=== PATIENT | female | born 1955 | race Caucasian/White ===

== ENCOUNTER 2019-10-05 15:33 | Emergency (ER) | payer OTHER ==
[~2019-10-05] VITALS: Ht 157.5 cm; Wt 97.5 kg
[~2019-10-05 15:33] MED LIST: EFFEXOR XR75 MG PO; GLIPIZIDE ER10 MG PO; GRALISE600 MG PO; HYDROCHLOROTHIA25 MG PO; JANUVIA PO; LOSARTAN PO; METFORMIN PO; SIMVASTATIN PO; TRAMADOL PO
[2019-10-05] MEDS ORDERED: SODIUM CHLORIDE 0.9% 1000ML 1,000 ML IV STA (16:00)
--- NOTE | 2019-10-05 16:49 | Emergency Department Note ---
History of Present Illnes History of Present Illness Chief Complaint: COVID PUI History of Present Illness This is a 64 year old female arrived to the ED for 1 week history of epigastric and right upper quadrant abdominal pain. Patient also is complaining of subjective fevers. She states she was seen at an outside hospital for these complaints last week received a Covid swab and was sent home. Patient states she knows her Covid swab is negative. Patient admits to mild nausea but denies any vomiting. Chief Complaint Comment C/O FEVER 102 AT HOME X 2 DAYS N/V DECREASED APPETITE STATES FEVER WON'T GO AWAY PT HAS TAKEN ADVIL AND TYLENOL LAST TOOK 3 ADVIL THIS MORNING C/O SWEATS DENIES CHILLS DENIES MUSCLE ACHES DENIES SORE THROAT MD IN ROOM DURING TRIAGE C/O COUGH NOT MUCH C/O UNCOMFORTABLE EPIGASTRIC PAIN . Historian: Patient Arrival Mode: Car Onset (how long ago): week(s) Radiation: Reports non-radiation, Reports back Severity: mild Onset quality: gradual Duration (how long): day(s) Progression: waxing and waning Chronicity: recurrent (LUIS ALEXANDER DO) Past Medical/Family History Physician Review I have reviewed the patient's past medical and family history. Any updates have been documented here. (LUIS ALEXANDER DO) Past Medical History Recent Fever: Yes Clinical Suspicion of Infectio: Yes New/Unexplained Change in Ment: No Past Medical History: Hypertension, Diabetes, Hyperlipedemia Other Medical History: NEUROPATHY Past Surgical History: Appendectomy, Back Surgery Other Surgery: TONSILLECTOMY CYST REMOVED FROM BREAST (LUIS ALEXANDER DO) Other Last Tetanus: OOD (LUIS ALEXANDER DO) Review of Systems Review of Systems Constitutional: Reports no symptoms EENTM: Reports no symptoms Cardiovascular: Reports no symptoms Respiratory: Reports no symptoms Gastrointestinal: Reports abdominal pain Genitourinary: Reports no symptoms Musculoskeletal: Reports no symptoms Integumentary: Reports no symptoms Neurological: Reports no symptoms Psychological: Reports no symptoms Endocrine: Reports no symptoms Hematological/Lymphatic: Reports no symptoms (LUIS ALEXANDER DO) Physical Exam Related Data Allergies: Coded Allergies: penicillin (Verified Allergy, Mild, TONGUE SWELLING, 03/24/16) sulfamethoxazole (Verified Allergy, Mild, LIPS SWELLING, 03/24/16) trimethoprim (Verified Allergy, Mild, LIPS SWELLING, 03/24/16) Triage Vital Signs Vital Signs Date Time Temp Pulse Resp B/P (MAP) Pulse Ox O2 Delivery O2 Flow Rate FiO2 10/05/19 15:55 99.7 93 24 164/80 94 Vital signs reviewed: Yes (LUIS ALEXANDER, ) Physical Exam CONSTITUTIONAL Constitutional: Present well-developed, Present well-nourished HENT HENT: Present normocephalic, Present atraumatic, Present oropharynx clear/moist, Present nose normal HENT L/R: Present left ext ear normal, Present right ext ear normal EYES Eyes: Reports PERRL, Reports conjunctivae normal NECK Neck: Present ROM normal PULMONARY Pulmonary: Present effort normal, Present breath sounds normal CARDIOVASCULAR Cardiovascular: Present regular rhythm, Present heart sounds normal, Present capillary refill normal, Present normal rate GASTROINTESTINAL Abdominal: Present soft, Present tender GENITOURINARY Genitourinary: Present exam deferred SKIN Skin: Present warm, Present dry MUSCULOSKELETAL Musculoskeletal: Present ROM normal NEUROLOGICAL Neurological: Present alert, Present oriented x 3, Present no gross motor or sensory deficits PSYCHOLOGICAL Psychological: Present mood/affect normal, Present judgement normal (LUIS ALEXANDER, DO) Results Laboratory Lab results reviewed: Yes Laboratory comments Laboratory Tests Test 10/05/19 16:21 10/05/19 16:10 Lipase 15 U/L (8-78) White Blood Count 11.04 x10e3/uL (4.8-10.8) Red Blood Count 4.65 x10e6/uL (3.6-5.1) Hemoglobin 12.7 g/dL (12.0-16.0) Hematocrit 36.6 % (34.2-44.1) Mean Corpuscular Volume 78.7 fL (81-99) Mean Corpuscular Hemoglobin 27.3 pg (28-32) Mean Corpuscular Hemoglobin Concent 34.7 g/dL (31-35) Red Cell Distribution Width 13.2 % (11.7-14.4) Platelet Count 156 x10e3/uL (140-360) Neutrophils (%) (Auto) 86.9 % (38.7-80.0) Lymphocytes (%) (Auto) 6.7 % (18.0-39.1) Monocytes (%) (Auto) 5.3 % (4.4-11.3) Eosinophils (%) (Auto) 0.0 % (0.0-6.0) Basophils (%) (Auto) 0.3 % (0.0-1.0) Neutrophils # (Auto) 9.6 (2.1-6.9) Lymphocytes # (Auto) 0.7 (1.0-3.2) Monocytes # (Auto) 0.6 (0.2-0.8) Eosinophils # (Auto) 0.0 (0.0-0.4) Basophils # (Auto) 0.0 (0.0-0.1) Absolute Immature Granulocyte (auto 0.09 x10e3/uL (0-0.1) Sodium Level 128 mmol/L (136-145) Potassium Level 2.5 mmol/L (3.5-5.1) Chloride Level 88 mmol/L (98-107) Carbon Dioxide Level 29 mmol/L (22-29) Anion Gap 13.5 mmol/L (8-16) Blood Urea Nitrogen 13 mg/dL (7-26) Creatinine 0.72 mg/dL (0.57-1.11) Estimat Glomerular Filtration Rate > 60 ML/MIN (60-) BUN/Creatinine Ratio 18 (6-25) Glucose Level 196 mg/dL (74-118) Calcium Level 8.9 mg/dL (8.4-10.2) Total Bilirubin 1.0 mg/dL (0.2-1.2) Aspartate Amino Transf (AST/SGOT) 59 IU/L (5-34) Alanine Aminotransferase (ALT/SGPT) 103 IU/L (0-55) Alkaline Phosphatase 97 IU/L (40-150) Creatine Kinase 65 IU/L (29-168) Creatine Kinase MB 0.40 ng/mL (0-5.0) Troponin I 0.034 ng/mL (0-0.300) Total Protein 6.8 g/dL (6.5-8.1) Albumin 3.1 g/dL (3.5-5.0) Globulin 3.7 g/dL (2.3-3.5) Albumin/Globulin Ratio 0.8 (0.8-2.0) (LUIS ALEXANDER, ) Procedures 12 Lead ECG Interpretation ECG Interpretation : Clinical Program Manager: Interpreted by ED physician Prior ECG tracings: reviewed Rhythm: sinus rhythm QRS axis: normal ST segments normal: Yes T waves normal: Yes Clinical Impression: normal ECG (LUIS ALEXANDER DO) Assessment & Plan Medical Decision Making MDM 64-year-old female arrived to the ED with complaints of epigastric right upper q uadrant abdominal pain. Patient with second ER visit for similar complaints. Patient's labwork reviewed, CT abdomen and pelvis is pending. Marked hypokalemia noted on labwork which was corrected with by mouth potassium Sign out given to Dr. Montoya to follow-up CT abdomen and pelvis and dispo patient accordingly (LUIS ALEXANDER DO) [facility] CT abdomen/pelvis with out abnormalities. COVID-19 infection considered and ruled out. Patient given parental and oral potassium. Plan to discharge to home. (KEVIN MONTOYA DO) Assessment & Plan Final Impression: (1) Abdominal pain (2) Epigastric abdominal pain (3) Hypokalemia (LUIS ALEXANDER DO) Final Impression: (1) Epigastric abdominal pain (2) Hypokalemia (3) Hyponatremia (KEVIN MONTOYA DO) Depart Disposition: HOME, SELF-CARE Last Vital Signs Date Time Temp Pulse Resp B/P (MAP) Pulse Ox O2 Delivery O2 Flow Rate FiO2 10/05/19 15:55 99.7 93 24 164/80 94 (LUIS ALEXANDER DO) Home Meds Reported Medications Hydrochlorothiazide (HYDROCHLOROTHIAZIDE) 25 Mg Tablet, 25 MG PO DAILY, #30 TAB 03/25/16 [Tramadol] No Conflict Check, PO DAILY 03/24/16 [Losartan] No Conflict Check, 100 MG PO DAILY 03/24/16 Gabapentin (GRALISE) 600 Mg Tab.er.24h, 1200 MG PO DAILY 03/24/16 Glipizide (GLIPIZIDE ER) 10 Mg Tab.er.24, 10 MG PO BID 03/24/16 [Januvia] No Conflict Check, 100 MG PO DAILY 03/24/16 Venlafaxine Hcl (EFFEXOR XR) 75 Mg Cap.er.24h, 75 MG PO DAILY 03/24/16 [Simvastatin] No Conflict Check, 10 MG PO DAILY 03/24/16 [Metformin] No Conflict Check, 500 MG PO BID 03/24/16 Medications in the ED Sodium Chloride 1,000 ml @ 0 mls/hr Q0M STAT IV Last administered on 10/05/19at 16:33; Admin Dose 999 MLS/HR; Start 10/05/19 at 16:00; Stop 10/05/19 at 16:04; Status DC (LUIS ALEXANDER, ) LUIS ALEXANDER DO Oct 05, 2019 16:32 KEVIN MONTOYA DO Oct 07, 2019 02:45
[2019-10-05 16:55] LABS: BASOPHILS % 0.3 % (0.0-1.0); HEMATOCRIT 36.6 % (34.2-44.1); HEMOGLOBIN 12.7 g/dL (12.0-16.0); LYMPHOCYTES # (AUTO) 0.7 (1.0-3.2); LYMPHOCYTES % 6.7 % (18.0-39.1); MEAN CORPUSCULAR HEMOGLOBIN 27.3 pg (28-32); MEAN CORPUSCULAR HGB CONC 34.7 g/dL (31-35); MEAN CORPUSCULAR VOLUME 78.7 fL (81-99); MONOCYTES # (AUTO) 0.6 (0.2-0.8); MONOCYTES % 5.3 % (4.4-11.3); NEUTROPHILS # (AUTO) 9.6 (2.1-6.9); NEUTROPHILS % 86.9 % (38.7-80.0); PLATELET COUNT 156 x10e3/uL (140-360); RED BLOOD COUNT 4.65 x10e6/uL (3.6-5.1); RED CELL DISTRIBUTION WIDTH 13.2 % (11.7-14.4)
[2019-10-05 17:12] LABS: ALANINE AMINOTRANSFERASE 103 IU/L (0-55); ALBUMIN 3.1 g/dL (3.5-5.0); ALBUMIN/GLOBULIN RATIO 0.8 (0.8-2.0); ALKALINE PHOSPHATASE 97 IU/L (40-150); ANION GAP 13.5 mmol/L (8-16); BLOOD UREA NITROGEN 13 mg/dL (7-26); BUN/CREATININE RATIO 18 (6-25); CALCIUM 8.9 mg/dL (8.4-10.2); CARBON DIOXIDE 29 mmol/L (22-29); CHLORIDE 88 mmol/L (98-107); CREATINE KINASE 65 IU/L (29-168); CREATININE, SERUM 0.72 mg/dL (0.57-1.11); EST GLOMERULAR FILTRATION RATE > 60 ML/MIN (60-); SODIUM 128 mmol/L (136-145)
[2019-10-05 17:14] LABS: POTASSIUM 2.5 mmol/L (3.5-5.1)
[2019-10-05] MEDS ORDERED: POTASSIUM CHLORIDE 20 MEQ TAB CR PO STA ×2 (17:15→17:53)
[2019-10-05 17:21] LABS: GLUCOSE 196 mg/dL (74-118)
[2019-10-05] MEDS ORDERED: IOPAMIDOL 370 MG/ML 200 ML INFUS..BTL INJ ONE (19:16)
[2019-10-05] MEDS ORDERED: SODIUM CHLORIDE 0.9% 50ML 50 ML ONE (19:16)
--- NOTE | 2019-10-05 19:17 | NUR ---
PT CURRENTLY IN CT SCAN.
[2019-10-05] MEDS ORDERED: POTASSIUM CHLORIDE 10MEQ EA PO ONE (19:30)
--- NOTE | 2019-10-05 20:02 | Diagnostic Imaging Report ---
EXAMINATION: CT of the abdomen and pelvis with contrast. TECHNIQUE: Spiral CT images of the abdomen and pelvis were performed from the lung bases to the lesser trochanters after the intravenous administration of 100 cc of Isovue-370 and the oral administration of water. Coronal and sagittal reformatted images were obtained. COMPARISON: None. CLINICAL HISTORY:Upper abdominal pain, fever for one week DISCUSSION: ABDOMEN/PELVIS: LOWER THORAX:Multiple linear opacities in bilateral lower lobes, worse in the left lower lobe, likely representing subsegmental atelectasis or scarring. Eventration of the right hemidiaphragm. HEPATOBILIARY: Diffusely decreased attenuation of the hepatic parenchyma compared to the spleen, consistent with steatosis. Subcentimeter hypodense lesions in hepatic segment (series 2, image 37), which are too small to characterize but likely represent small cysts. No enhancing lesions. No intra or extrahepatic biliary ductal dilation. GALLBLADDER: Layering small stones in the dependent portion of the gallbladder lumen (series 2, image 39) No wall thickening. SPLEEN: Mild splenomegaly, measuring 13.7 cm in AP diameter. PANCREAS: No focal masses or ductal dilatation. Punctate calcification in the pancreatic body (series 2, image 33 ADRENALS: 3.4 x 2.8 cm well circumscribed hypodense lesion in the right adrenal gland (series 2, image 28). Left adrenal gland is unremarkable. KIDNEYS/URETERS: No renal or ureteral calculi, hydronephrosis or obstruction. 2.8 x 2.3 cm fluid density simple cyst in the right interpolar region (series 2, image 41). 2.8 x 2.6 cm fluid density structure in the mid to inferior aspect of the left renal sinus (series 2, image 39), consistent with a peripelvic cyst. No solid enhancing masses. PELVIC ORGANS/BLADDER: Bladder is unremarkable. Lobulated contour of the uterus particularly the fundus, likely reflecting underlying fibroids. No adnexal masses. PERITONEUM/RETROPERITONEUM: No free air or fluid. LYMPH NODES: No intra-abdominal, retroperitoneal, pelvic or inguinal lymphadenopathy. VESSELS: The celiac trunk,superior and inferior mesenteric and bilateral renal arteries are patent The portal, superior mesenteric and splenic veins are patent. Atherosclerotic calcification of the distal abdominal aorta GI TRACT: No bowel dilation or evidence of obstruction. No pericolonic inflammatory changes. Stomach is unremarkable. No wall thickening. BONES AND SOFT TISSUE: No aggressive lytic lesions. Multilevel degenerated discs in the lower thoracic and lumbosacral spine, worse at L4-L5. Soft tissues are grossly unremarkable. IMPRESSION: 1. No acute abdominopelvic abnormalities. No bowel dilation or evidence of obstruction. 2. Diffuse hepatic steatosis. No suspicious focal lesions. 3. Mild splenomegaly. 4. Indeterminate 3.4 cm hypodense lesion in the right adrenal gland. This may be further assessed with a CT abdomen with adrenal mass protocol, a nonemergent basis. 5. Cholelithiasis, without CT evidence of cholecystitis. 6. Bilateral lower lobe subsegmental atelectasis or scarring, left greater than right. Signed by: Dr. Roosevelt Fiore M.D. on 10/05/2019 7:58 PM
[2019-10-05] MEDS ORDERED: POTASSIUM CHLORIDE 10MEQ/100ML 100 ML IV ONE (21:15)
[2019-10-05] MEDS ORDERED: SODIUM CHLORIDE 0.9% 250ML 250 ML ONE (21:29)
[2019-10-05] MEDS ORDERED: ACETAMINOPHEN 325 MG TAB PO STA (22:12)
[2019-10-05] MEDS ORDERED: ACETAMINOPHEN 325 MG TAB ONE (22:25)
[2019-10-06 04:50] VITALS: BP 153/72
== END 2019-10-06 05:30 | disposition home or self-care (01) ==
LOC: ER 15:33
DX: R10.13 Epigastric pain (principal); E87.6 Hypokalemia; E87.1 Hypo-osmolality and hyponatremia; I10 Essential (primary) hypertension; E11.40 Type 2 diabetes mellitus with diabetic neuropathy, unspecified; E78.5 Hyperlipidemia, unspecified
CPT/HCPCS: 36415; 74177; 80053; 82550; 82553; 83690; 84484; 85025; 87635; 93005; 99284; J3480; J7030; J7050; Q9967